=== PATIENT | male | born 1955 | race African-American/Black ===

== ENCOUNTER 2019-11-16 19:27 | Inpatient (IN) | payer OTHER ==
[2019-11-16 22:05] VITALS: BMI 27.3
--- NOTE | 2019-11-16 22:33 | HP ---
CIWA Score Nausea/Vomitin-Mild Nausea/No Vomiting Muscle Tremors: 3 Anxiety: 3 Agitation: 2 Paroxysmal Sweats: 2 Orientation: 0-Oriented Tacttile Disturbances: 0-None Auditory Disturbances: 0-None Visual Disturbances: 0-None Headache: 4-Moderately Severe CIWA-Ar Total Score: 15 - Admission Criteria OASAS Guidelines: Admission for Medically Managed Detox: Requires at least one of the followin. CIWA greater than 12 2. Seizures within the past 24 hours 3. Delirium tremens within the past 24 hours 4. Hallucinations within the past 24 hours 5. Acute intervention needed for co occurring medical disorder 6. Acute intervention needed for co occurring psychiatric disorder 7. Severe withdrawal that cannot be handled at a lower level of care (continued vomiting, continued diarrhea, abnormal vital signs) requiring intravenous medication and/or fluids 8. Admission ROS [facility] Chief Complaint: Alcohol withdrawal symptoms Allergies/Adverse Reactions: Allergies Allergy/AdvReac Type Severity Reaction Status Date / Time mushroom Allergy Severe Verified 11/16/19 21:55 Fish Containing Products Allergy Mild Verified 11/16/19 21:55 scanlon Allergy Mild Uncoded 11/16/19 21:55 veal Allergy Uncoded 11/16/19 21:55 History of Present Illness: 64 years old male with a history of 40 years of alcohol dependence is seeking admission to detox. Patient states that he was admitted to [facility] 25 years ago and reports 3 years of sobriety. He has medical history of low back pain, hypertension, hyperlipidemia and diabetes type 2. He also has prosthetic left eye and psychiatric history of depression. He denies suicide attempt and suicidal ideation at this time. - Ebola screening Have you traveled outside of the country in the last 21 days: No (N) Have you had contact with anyone from an Ebola affected area: No Do you have a fever: No - Review of Systems Constitutional: Chills, Malaise, Night Sweats, Changes in sleep EENT: reports: No Symptoms Reported, Other (prosthetic left eye) Cardiac: reports: No Symptoms Reported GI: reports: Nausea, Poor Appetite, Poor Fluid Intake : reports: No Symptoms Reported Musculoskeletal: reports: Back Pain, Muscle Pain Integumentary: reports: Dryness, Flushing Neuro: reports: Tremors Endocrine: reports: No Symptoms Reported Hematology: reports: No Symptoms Reported Psychiatric: reports: Mood/Affect Appropiate, Orientated x3, Anxious, Depressed Other Systems: Reviewed and Negative Patient History - Patient Medical History Hx Anemia: No Hx Asthma: No Hx Chronic Obstructive Pulmonary Disease (COPD): No Hx Cardiac Disorders: No Hx Congestive Heart Failure: No Hx Hypertension: Yes Hx Hypercholesterolemia: No HX Cerebrovascular Accident: No Hx Seizures: No Hx Dementia: No Hx Diabetes: Yes (Metformin, [place]) Hx Gastrointestinal Disorders: No Hx Liver Disease: No Hx Genitourinary Disorders: No Hx Sexually Transmitted Disorders: No Hx Renal Disease (ESRD): No Hx Thyroid Disease: No Hx Human Immunodeficiency Virus (HIV): No (Negative 2017) Hx Hepatitis C: No Hx Depression: Yes Hx Suicide Attempt: No (Denies suicidal ideation at this time) Hx Bipolar Disorder: Yes Hx Schizophrenia: No - Patient Surgical History Past Surgical History: Yes Hx Neurologic Surgery: No Hx Cataract Extraction: No Hx Cardiac Surgery: No Hx Lung Surgery: No Hx Abdominal Surgery: No Hx Appendectomy: No Hx Cholecystectomy: No Hx Genitourinary Surgery: No Hx Section: No Hx Orthopedic Surgery: No Other Surgical History: LEFT EYE SURGERY 1995 Anesthesia Reaction: No - PPD History Previous Implant?: Yes (PPD POSITIVE. INH for 6 MONTHS) Documented Results: Positive w/o proof Implanted On Prior [facility] Admission?: No PPD to be Administered?: No - Reproductive History Patient is a Female of Child Bearing Age (11 -55 yrs old): No (male) - Smoking Cessation Smoking history: Current every day smoker Have you smoked in the past 12 months: Yes Aproximately how many cigarettes per day: 20 Hx Chewing Tobacco Use: No Initiated information on smoking cessation: Yes 'Breaking Loose' booklet given: 11/16/19 - Substance & Tx. History Hx Alcohol Use: Yes Hx Substance Use: No Substance Use Type: Alcohol Hx Substance Use Treatment: No - Substances abused Alcohol Substance route: Oral Frequency: Daily Amount used: 2-3 pints of vodka Age of first use: 24 Date of last use: 11/16/19 Admission Physical Exam BHS - Vital Signs Vital Signs: Vital Signs - 24 hr 11/16/19 21:54 Temperature 98.2 F Pulse Rate 99 H Respiratory 20 Rate Blood Pressure 155/74 - Physical General Appearance: Yes: Mild Distress HEENTM: Yes: Within Normal Limits Respiratory: Yes: Lungs Clear, Normal Breath Sounds, No Respiratory Distress Neck: Yes: Within Normal Limits, Supple Breast: Yes: Breast Exam Deferred Cardiology: Yes: Tachycardia Abdominal: Yes: Normal Bowel Sounds, Soft Genitourinary: Yes: Within Normal Limits Back: Yes: Normal Inspection Musculoskeletal: Yes: Within Normal Limits Extremities: Yes: Normal Inspection Neurological: Yes: Within Normal Limits, Alert, Normal Mood/Affect Integumentary: Yes: Warm Lymphatic: Yes: Within Normal Limits - Diagnostic (1) Alcohol dependence with withdrawal, uncomplicated Current Visit: Yes Status: Acute (2) Nicotine dependence Current Visit: Yes Status: Chronic Qualifiers: Nicotine product type: cigarettes Substance use status: uncomplicated Qualified Code(s): F17.210 - Nicotine dependence, cigarettes, uncomplicated (3) DM type 2 (diabetes mellitus, type 2) Current Visit: Yes Status: Chronic (4) Hypertension Current Visit: Yes Status: Chronic Qualifiers: Hypertension type: essential hypertension Qualified Code(s): I10 - Essential (primary) hypertension (5) Hyperlipidemia Current Visit: Yes Status: Chronic (6) Depression Current Visit: Yes Status: Chronic Qualifiers: Depression Type: unspecified Qualified Code(s): F32.9 - Major depressive disorder, single episode, unspecified Cleared for Admission S - Detox or Rehab [facility] Level of Care: Medically Managed Detox Regimen/Protocol: Librium Claeared for Rehab Admission: Yes Breathalyzer - Breathalyzer Breathalyzer: 0.135 Urine Drug Screen - Test Device Lot number: [id number] Expiration date: 06/14/21 - Control Is test valid?: Yes - Results Drug screen NEGATIVE: Yes Inpatient Rehab Admission - Rehab Decision to Admit Inpatient rehab admission?: No
[2019-11-16] MEDS ORDERED: ACETAMINOPHEN 325 MG TABLET (FP) PO PRN ×2 (22:56)
[2019-11-16] MEDS ORDERED: MAG HYDROX/AL HYDROX/SIMETH 30 ML UNIT-DOSE CUP PO PRN (22:56)
[2019-11-16] MEDS ORDERED: MELATONIN 5 MG TABLETS PO PRN (22:56)
[2019-11-16] MEDS ORDERED: MAGNESIUM CITRATE 300 ML BOTTLE PO PRN (22:56)
[2019-11-16] MEDS ORDERED: BISMUTH SUBSALICYLATE 524 MG/30 ML UD PO PRN (22:56)
[2019-11-16] MEDS ORDERED: NICOTINE POLACRILEX 2 MG GUM BUC PRN (22:56)
[2019-11-16] MEDS ORDERED: hydrOXYzine PAMOATE 25 MG CAPSULE (FP) PO PRN (22:56)
[2019-11-16] MEDS ORDERED: chlordiazePOXIDE HCL 25 MG CAPSULE PO PRN (22:56)
[2019-11-16] MEDS ORDERED: MENTHOL/PHENOL 1 EACH UD MM PRN (22:56)
[2019-11-17] MEDS: chlordiazePOXIDE HCL 25 MG CAPSULE PO SCH ×5 (00:35→22:01)
[2019-11-17] MEDS: metFORMIN HCL 500 MG TABLET (FP) PO SCH ×2 (06:40→16:49)
[2019-11-17] MEDS: IBUPROFEN 400 MG TABLET (FP) PO PRN ×2 (06:42→22:01)
[2019-11-17] MEDS: MAGNESIUM HYDROX 2400MG/30ML ORAL SUSPENSION 30 ML CUP PO PRN ×2 (09:17→22:01)
[2019-11-17 10:17] LABS: HEMATOCRIT 35.2 % (35.4-49); HEMOGLOBIN 11.8 GM/dL (11.7-16.9); MCH 31.4 pg (25.7-33.7); MCHC 33.7 g/dl (32.0-35.9); MEAN CELL VOLUME 93.3 fl (80-96); MEAN PLT VOLUME 8.6 fl (7.5-11.1); PLATELET COUNT 236 K/MM3 (134-434); RBC 3.77 M/mm3 (4.00-5.60); RDW 17.2 % (11.9-15.9); WHITE BLOOD COUNT 5.8 K/mm3 (4.0-10.0)
[2019-11-17 10:19] LABS: ALBUMIN 3.9 g/dl (3.4-5.0); BILIRUBIN,TOTAL 0.7 mg/dL (0.2-1); CALCIUM 8.7 mg/dL (8.5-10.1); CREATININE 1.2 mg/dL (0.55-1.3); POTASSIUM 3.7 mmol/L (3.5-5.1); TOT PROT 7.9 g/dl (6.4-8.2)
[2019-11-17] MEDS: PRENATAL VITAMINS W/ FOLIC ACID TABLET (FP) PO SCH (10:34)
[2019-11-17] MEDS: ASPIRIN 81 MG CHEWABLE TABLETS PO SCH (10:34)
[2019-11-17] MEDS: NICOTINE 14 MG/24 HOURS TOPICAL PATCH TD SCH (10:36)
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
[2019-11-17] MEDS: LOSARTAN 50MG/HCTZ 12.5MG 1 TAB (FP) PO SCH (12:00)
[2019-11-17] MEDS: SERTRALINE HCL 50 MG TABLET (FP) PO SCH (12:30)
--- NOTE | 2019-11-17 13:12 | PN ---
[facility]HS CIWA - CIWA Score Nausea/Vomitin Muscle Tremors: 2 Anxiety: 1-Mildly Anxious Agitation: 1-Slight > Activity Paroxysmal Sweats: 2 Orientation: 0-Oriented Tacttile Disturbances: 1-Very Mild Itch/Numbness Auditory Disturbances: 0-None Visual Disturbances: 0-None Headache: 0-None Present CIWA-Ar Total Score: 9 BHS Progress Note (SOAP) Subjective: interrupted sleep, sweats, shakes , lbp Objective: 11/17/19 13:09 Vital Signs Temp 97.2 F L 11/17/19 09:24 Pulse 85 11/17/19 09:24 Resp 18 11/17/19 09:24 BP 143/80 11/17/19 09:24 Pulse Ox Intake & Output 11/16/19 11/17/19 11/17/19 23:59 11:59 23:59 Weight 175 lb Other: Voiding Method Toilet Height 5 ft 7 in Body Mass Index (BMI) 27.3 Laboratory Tests 11/16/19 11/17/19 11/17/19 23:31 06:15 07:40 WBC 5.8 RBC 3.77 L Hgb 11.8 Hct 35.2 L MCV 93.3 MCH 31.4 MCHC 33.7 RDW 17.2 H Plt Count 236 MPV 8.6 Sodium Potassium Chloride Carbon Dioxide Anion Gap BUN Creatinine Est GFR (CKD-EPI)AfAm Est GFR (CKD-EPI)NonAf POC Glucometer 90 160 Random Glucose Calcium Total Bilirubin AST ALT Alkaline Phosphatase Total Protein Albumin RPR Titer 11/17/19 11/17/19 07:40 07:40 WBC RBC Hgb Hct MCV MCH MCHC RDW Plt Count MPV Sodium 136 Potassium 3.7 Chloride 101 Carbon Dioxide 28 Anion Gap 8 BUN 19.0 H Creatinine 1.2 Est GFR (CKD-EPI)AfAm 74.66 Est GFR (CKD-EPI)NonAf 64.42 POC Glucometer Random Glucose 131 H Calcium 8.7 Total Bilirubin 0.7 AST 68 H ALT 67 H Alkaline Phosphatase 77 Total Protein 7.9 Albumin 3.9 RPR Titer Nonreactive pt aox3 in nad ambulating well Assessment: 11/17/19 13:10 withdrawal sx's Plan: cont. detox increase fluidss nicotine gum
--- NOTE | 2019-11-17 13:26 | EKG ---
Test Reason : Blood Pressure : / mmHG Vent. Rate : 096 BPM Atrial Rate : 096 BPM P-R Int : 144 ms QRS Dur : 096 ms QT Int : 358 ms P-R-T Axes : 060 021 045 degrees QTc Int : 452 ms NORMAL SINUS RHYTHM NORMAL ECG NO PREVIOUS ECGS AVAILABLE Confirmed by CLEMENTE TRUJILLO, SHY ([id number]) on 11/17/2019 1:26:23 PM Referred By: Carmelo Walker Confirmed By:SHY CORNEJO MD
[2019-11-17] MEDS: QUEtiapine FUMARATE 200 MG TABLET PO SCH (22:01)
[2019-11-17] MEDS: THIAMINE HCL 100 MG TABLET (FP) PO SCH (22:01)
[2019-11-18] MEDS: metFORMIN HCL 500 MG TABLET (FP) PO SCH ×2 (06:49→17:27)
[2019-11-18] MEDS: chlordiazePOXIDE HCL 25 MG CAPSULE PO SCH ×4 (06:50→22:03)
[2019-11-18] MEDS: SERTRALINE HCL 50 MG TABLET (FP) PO SCH (10:20)
[2019-11-18] MEDS: PRENATAL VITAMINS W/ FOLIC ACID TABLET (FP) PO SCH (10:20)
[2019-11-18] MEDS: ASPIRIN 81 MG CHEWABLE TABLETS PO SCH (10:20)
[2019-11-18] MEDS: LOSARTAN 50MG/HCTZ 12.5MG 1 TAB (FP) PO SCH (10:21)
[2019-11-18] MEDS: NICOTINE 14 MG/24 HOURS TOPICAL PATCH TD SCH (10:21)
[2019-11-18] MEDS: METHOCARBAMOL 500 MG TABLET PO PRN ×2 (10:24→22:05)
--- NOTE | 2019-11-18 10:46 | PN ---
S CIWA - CIWA Score Nausea/Vomitin-Mild Nausea/No Vomiting Muscle Tremors: 2 Anxiety: 1-Mildly Anxious Agitation: 1-Slight > Activity Paroxysmal Sweats: No Perspiration Orientation: 0-Oriented Tacttile Disturbances: 0-None Auditory Disturbances: 0-None Visual Disturbances: 0-None Headache: 1-Very Mild CIWA-Ar Total Score: 6 BHS Progress Note (SOAP) Subjective: pt requesting a cane. Says he has heel spurs and needs help with a cane. Uses one at home but left it there. Says he is doing well with detox. O: Vital Signs - 24 hr 11/17/19 11/17/19 11/17/19 13:14 17:21 21:43 Temperature 98.6 F 98.4 F 97.8 F Pulse Rate 72 106 H 83 Respiratory 20 18 18 Rate Blood Pressure 157/91 142/94 159/85 11/18/19 11/18/19 11/18/19 00:30 03:37 06:54 Temperature 97.3 F L Pulse Rate 72 Respiratory 18 18 18 Rate Blood Pressure 132/60 11/18/19 09:53 Temperature 98.1 F Pulse Rate 89 Respiratory 18 Rate Blood Pressure 130/74 Laboratory Tests 11/16/19 11/17/19 11/17/19 23:31 06:15 07:40 WBC 5.8 RBC 3.77 L Hgb 11.8 Hct 35.2 L MCV 93.3 MCH 31.4 MCHC 33.7 RDW 17.2 H Plt Count 236 MPV 8.6 Sodium Potassium Chloride Carbon Dioxide Anion Gap BUN Creatinine Est GFR (CKD-EPI)AfAm Est GFR (CKD-EPI)NonAf POC Glucometer 90 160 Random Glucose Calcium Total Bilirubin AST ALT Alkaline Phosphatase Total Protein Albumin RPR Titer 11/17/19 11/17/19 11/17/19 07:40 07:40 16:31 WBC RBC Hgb Hct MCV MCH MCHC RDW Plt Count MPV Sodium 136 Potassium 3.7 Chloride 101 Carbon Dioxide 28 Anion Gap 8 BUN 19.0 H Creatinine 1.2 Est GFR (CKD-EPI)AfAm 74.66 Est GFR (CKD-EPI)NonAf 64.42 POC Glucometer 181 Random Glucose 131 H Calcium 8.7 Total Bilirubin 0.7 AST 68 H ALT 67 H Alkaline Phosphatase 77 Total Protein 7.9 Albumin 3.9 RPR Titer Nonreactive 11/18/19 06:48 WBC RBC Hgb Hct MCV MCH MCHC RDW Plt Count MPV Sodium Potassium Chloride Carbon Dioxide Anion Gap BUN Creatinine Est GFR (CKD-EPI)AfAm Est GFR (CKD-EPI)NonAf POC Glucometer 256 Random Glucose Calcium Total Bilirubin AST ALT Alkaline Phosphatase Total Protein Albumin RPR Titer a/p: AUD- continue alcohol detox mildly increased liver enzymes
[2019-11-18] MEDS: IBUPROFEN 400 MG TABLET (FP) PO PRN ×2 (12:23→22:05)
[2019-11-18] MEDS: THIAMINE HCL 100 MG TABLET (FP) PO SCH (22:03)
[2019-11-18] MEDS: QUEtiapine FUMARATE 200 MG TABLET PO SCH (22:03)
[2019-11-19] MEDS ORDERED: chlordiazePOXIDE HCL 10 MG CAPSULE PO PRN
[2019-11-19] MEDS: METHOCARBAMOL 500 MG TABLET PO PRN ×2 (06:33→22:31)
[2019-11-19] MEDS: metFORMIN HCL 500 MG TABLET (FP) PO SCH ×2 (06:33→17:29)
[2019-11-19] MEDS: chlordiazePOXIDE HCL 10 MG CAPSULE PO SCH ×4 (06:33→22:33)
[2019-11-19] MEDS: NICOTINE 14 MG/24 HOURS TOPICAL PATCH TD SCH (10:57)
[2019-11-19] MEDS: SERTRALINE HCL 50 MG TABLET (FP) PO SCH (10:57)
[2019-11-19] MEDS: LOSARTAN 50MG/HCTZ 12.5MG 1 TAB (FP) PO SCH (10:57)
[2019-11-19] MEDS: PRENATAL VITAMINS W/ FOLIC ACID TABLET (FP) PO SCH (10:57)
[2019-11-19] MEDS: ASPIRIN 81 MG CHEWABLE TABLETS PO SCH (10:57)
--- NOTE | 2019-11-19 12:42 | PN ---
S CIWA - CIWA Score Nausea/Vomitin-No Nausea/No Vomiting Muscle Tremors: 2 Anxiety: 2 Agitation: 1-Slight > Activity Paroxysmal Sweats: 2 Orientation: 0-Oriented Tacttile Disturbances: 0-None Auditory Disturbances: 0-None Visual Disturbances: 0-None Headache: 0-None Present CIWA-Ar Total Score: 7 BHS Progress Note (SOAP) Subjective: Tremor, chills, sweating, interrupted sleep Objective: 11/19/19 12:39 Last Vital Signs Temp Pulse Resp BP Pulse Ox 98.1 F 83 18 161/87 11/19/19 08:52 11/19/19 08:52 11/19/19 08:52 11/19/19 08:52 Elevated b/p noted; has htn: on medication Laboratory Tests 11/16/19 11/17/19 11/17/19 23:31 06:15 07:40 WBC 5.8 RBC 3.77 L Hgb 11.8 Hct 35.2 L MCV 93.3 MCH 31.4 MCHC 33.7 RDW 17.2 H Plt Count 236 MPV 8.6 Sodium Potassium Chloride Carbon Dioxide Anion Gap BUN Creatinine Est GFR (CKD-EPI)AfAm Est GFR (CKD-EPI)NonAf POC Glucometer 90 160 Random Glucose Calcium Total Bilirubin AST ALT Alkaline Phosphatase Total Protein Albumin RPR Titer 11/17/19 11/17/19 11/17/19 07:40 07:40 16:31 WBC RBC Hgb Hct MCV MCH MCHC RDW Plt Count MPV Sodium 136 Potassium 3.7 Chloride 101 Carbon Dioxide 28 Anion Gap 8 BUN 19.0 H Creatinine 1.2 Est GFR (CKD-EPI)AfAm 74.66 Est GFR (CKD-EPI)NonAf 64.42 POC Glucometer 181 Random Glucose 131 H Calcium 8.7 Total Bilirubin 0.7 AST 68 H ALT 67 H Alkaline Phosphatase 77 Total Protein 7.9 Albumin 3.9 RPR Titer Nonreactive 11/18/19 11/18/19 11/19/19 06:48 16:23 06:31 WBC RBC Hgb Hct MCV MCH MCHC RDW Plt Count MPV Sodium Potassium Chloride Carbon Dioxide Anion Gap BUN Creatinine Est GFR (CKD-EPI)AfAm Est GFR (CKD-EPI)NonAf POC Glucometer 256 198 267 Random Glucose Calcium Total Bilirubin AST ALT Alkaline Phosphatase Total Protein Albumin RPR Titer Labs reviewed: hyperglycemia due to DM (on medication) Assessment: 11/19/19 12:40 Withdrawal sxs Plan: Continue detox Encouraged PO water intake HTN: on medication, encouraged adherence DMT2: on medication, encouraged adherence to medication
[2019-11-19] MEDS: QUEtiapine FUMARATE 200 MG TABLET PO SCH (22:31)
[2019-11-19] MEDS: IBUPROFEN 400 MG TABLET (FP) PO PRN (22:31)
[2019-11-19] MEDS: THIAMINE HCL 100 MG TABLET (FP) PO SCH (22:31)
[2019-11-20] MEDS: metFORMIN HCL 500 MG TABLET (FP) PO SCH ×2 (06:33→16:25)
[2019-11-20] MEDS: chlordiazePOXIDE HCL 10 MG CAPSULE PO SCH ×2 (06:34→16:25)
--- NOTE | 2019-11-20 10:13 | PN ---
S CIWA - CIWA Score Nausea/Vomitin-Mild Nausea/No Vomiting Muscle Tremors: 1-None Visible, but Raven Anxiety: 1-Mildly Anxious Agitation: 1-Slight > Activity Paroxysmal Sweats: No Perspiration Orientation: 0-Oriented Tacttile Disturbances: 1-Very Mild Itch/Numbness Auditory Disturbances: 0-None Visual Disturbances: 0-None Headache: 1-Very Mild CIWA-Ar Total Score: 6 BHS Progress Note (SOAP) Subjective: alert,irritable,anxious,interrupted sleep, Objective: 11/20/19 10:11 Vital Signs Temperature 98.1 F 11/20/19 09:15 Pulse Rate 78 11/20/19 09:15 Respiratory Rate 18 11/20/19 09:15 Blood Pressure 151/88 11/20/19 09:15 O2 Sat by Pulse Oximetry (%) 11/20/19 10:12 [id number] Assessment: 11/20/19 10:12 withdrawal symptom Plan: continue detox,discharge in am
[2019-11-20] MEDS: PRENATAL VITAMINS W/ FOLIC ACID TABLET (FP) PO SCH (11:25)
[2019-11-20] MEDS: ASPIRIN 81 MG CHEWABLE TABLETS PO SCH (11:25)
[2019-11-20] MEDS: NICOTINE 14 MG/24 HOURS TOPICAL PATCH TD SCH (11:25)
[2019-11-20] MEDS: LOSARTAN 50MG/HCTZ 12.5MG 1 TAB (FP) PO SCH (11:25)
[2019-11-20] MEDS: SERTRALINE HCL 50 MG TABLET (FP) PO SCH (11:25)
--- NOTE | 2019-11-20 17:05 | HOSP ---
Subjective - Review of Symptoms Subjective: called by nurse regarding the patient's BGM. Per nurse, BGM was 300 at this time and has been consistently in the 200-300's during his stay. The patient has been on metformin and januvia; his home medications. The nurse also informed this selling underwriter that the patient has been noncompliant with his diet, adding sugar to his coffee. On chart review, the patient's BGM has been consistently in the high 100's - 300's. In addition to this, patient is on a regular diet. Will change regular diet to diabetic diet. Will also d/c the patient's oral hypoglycemics and place him on ISS until his sugars are better controlled. Physical Examination Vital Signs: Vital Signs Temperature 98.1 F 11/20/19 09:15 Pulse Rate 78 11/20/19 09:15 Respiratory Rate 18 11/20/19 09:15 Blood Pressure 151/88 11/20/19 09:15 O2 Sat by Pulse Oximetry (%) Labs: CBC, BMP 11/17/19 07:40 11/17/19 07:40 Visit type - Emergency Visit Emergency Visit: No - New Patient This patient is new to me today: Yes Date on this admission: 11/20/19 - Critical Care Critical Care patient: No
[2019-11-20] MEDS: IBUPROFEN 400 MG TABLET (FP) PO PRN (22:00)
[2019-11-20] MEDS: QUEtiapine FUMARATE 200 MG TABLET PO SCH (22:00)
[2019-11-20] MEDS: THIAMINE HCL 100 MG TABLET (FP) PO SCH (22:02)
[2019-11-21] MEDS ORDERED: chlordiazePOXIDE HCL 10 MG CAPSULE PO ONE (05:00)
[2019-11-21] MEDS: chlordiazePOXIDE HCL 10 MG CAPSULE PO SCH (06:40)
[2019-11-21] MEDS ORDERED: INSULIN SLIDING SCALE (NOVOLOG) 1 VIAL SQ SCH (07:00)
[2019-11-21 09:25] VITALS: BP 144/77; PULSE 77; TEMP 97.3
--- NOTE | 2019-11-21 09:37 | DS ---
[facility] Detox Discharge Summary Admission Date: 11/16/19 Discharge Date: 11/21/19 - History Present History: Alcohol Dependence - Physical Exam Results Vital Signs: Vital Signs Temperature 97.3 F L 11/21/19 09:24 Pulse Rate 77 11/21/19 09:24 Respiratory Rate 18 11/21/19 09:24 Blood Pressure 144/77 11/21/19 09:24 O2 Sat by Pulse Oximetry (%) Pertinent Admission Physical Exam Findings: Vital Signs Temperature 97.3 F L 11/21/19 09:24 Pulse Rate 77 11/21/19 09:24 Respiratory Rate 18 11/21/19 09:24 Blood Pressure 144/77 11/21/19 09:24 O2 Sat by Pulse Oximetry (%) Laboratory Tests 11/16/19 11/17/19 11/17/19 23:31 06:15 07:40 WBC 5.8 RBC 3.77 L Hgb 11.8 Hct 35.2 L MCV 93.3 MCH 31.4 MCHC 33.7 RDW 17.2 H Plt Count 236 MPV 8.6 Sodium Potassium Chloride Carbon Dioxide Anion Gap BUN Creatinine Est GFR (CKD-EPI)AfAm Est GFR (CKD-EPI)NonAf POC Glucometer 90 160 Random Glucose Calcium Total Bilirubin AST ALT Alkaline Phosphatase Total Protein Albumin RPR Titer 11/17/19 11/17/19 11/17/19 07:40 07:40 16:31 WBC RBC Hgb Hct MCV MCH MCHC RDW Plt Count MPV Sodium 136 Potassium 3.7 Chloride 101 Carbon Dioxide 28 Anion Gap 8 BUN 19.0 H Creatinine 1.2 Est GFR (CKD-EPI)AfAm 74.66 Est GFR (CKD-EPI)NonAf 64.42 POC Glucometer 181 Random Glucose 131 H Calcium 8.7 Total Bilirubin 0.7 AST 68 H ALT 67 H Alkaline Phosphatase 77 Total Protein 7.9 Albumin 3.9 RPR Titer Nonreactive 11/18/19 11/18/19 11/19/19 06:48 16:23 06:31 WBC RBC Hgb Hct MCV MCH MCHC RDW Plt Count MPV Sodium Potassium Chloride Carbon Dioxide Anion Gap BUN Creatinine Est GFR (CKD-EPI)AfAm Est GFR (CKD-EPI)NonAf POC Glucometer 256 198 267 Random Glucose Calcium Total Bilirubin AST ALT Alkaline Phosphatase Total Protein Albumin RPR Titer 11/19/19 11/20/19 11/20/19 16:28 06:32 16:19 WBC RBC Hgb Hct MCV MCH MCHC RDW Plt Count MPV Sodium Potassium Chloride Carbon Dioxide Anion Gap BUN Creatinine Est GFR (CKD-EPI)AfAm Est GFR (CKD-EPI)NonAf POC Glucometer 308 223 385 Random Glucose Calcium Total Bilirubin AST ALT Alkaline Phosphatase Total Protein Albumin RPR Titer 11/21/19 06:28 WBC RBC Hgb Hct MCV MCH MCHC RDW Plt Count MPV Sodium Potassium Chloride Carbon Dioxide Anion Gap BUN Creatinine Est GFR (CKD-EPI)AfAm Est GFR (CKD-EPI)NonAf POC Glucometer 342 Random Glucose Calcium Total Bilirubin AST ALT Alkaline Phosphatase Total Protein Albumin RPR Titer aaox3 ambulating no acute distress - Treatment Hospital Course: Detox Protocol Followed, Detoxed Safely, Responded well, Discharged Condition Good, Rehab Referral Accepted Patient has Accepted a Rehab Referral to: referred to [facility] inpatient rehab - Medication Discharge Medications: Ambulatory Orders Aspirin 81 mg PO DAILY 11/16/19 Ibuprofen [Motrin -] 400 mg PO BID PRN 11/16/19 Losartan/Hydrochlorothiazide [Losartan-Hctz 50-12.5 mg Tab] 1 each PO DAILY 01/04 Metformin HCl [Glucophage] 1,000 mg PO BID 11/16/19 Quetiapine Fumarate [Seroquel -] 300 mg PO HS 11/16/19 Sertraline HCl [Zoloft] 100 mg PO DAILY 11/16/19 Sitagliptin Phosphate [Januvia] 100 mg PO DAILY 11/16/19 - Diagnosis (1) Alcohol dependence with withdrawal, uncomplicated Current Visit: Yes Status: Chronic (2) DM type 2 (diabetes mellitus, type 2) Current Visit: Yes Status: Chronic (3) Depression Current Visit: Yes Status: Chronic Qualifiers: Depression Type: unspecified Qualified Code(s): F32.9 - Major depressive disorder, single episode, unspecified (4) Hyperlipidemia Current Visit: Yes Status: Chronic (5) Hypertension Current Visit: Yes Status: Chronic Qualifiers: Hypertension type: essential hypertension Qualified Code(s): I10 - Essential (primary) hypertension (6) MDD (major depressive disorder) Current Visit: Yes Status: Chronic (7) Nicotine dependence Current Visit: Yes Status: Chronic Qualifiers: Nicotine product type: cigarettes Substance use status: uncomplicated Qualified Code(s): F17.210 - Nicotine dependence, cigarettes, uncomplicated - AMA Did Patient Leave Against Medical Advice: No
== END 2019-11-21 08:50 | disposition home or self-care (01) | DRG 775 ==
LOC: YASAS 19:27 → Y6N 23:23
PROVIDERS: ADMIT Allergy & Immunology; ATTEND Allergy & Immunology
PROC: HZ2ZZZZ Detoxification Services for Substance Abuse Treatment (ICD-10-PCS; principal; 2019-11-16)
DX: F10.230 Alcohol dependence with withdrawal, uncomplicated (principal); F17.210 Nicotine dependence, cigarettes, uncomplicated; F32.9 Major depressive disorder, single episode, unspecified; I10 Essential (primary) hypertension; E11.9 Type 2 diabetes mellitus without complications; E78.5 Hyperlipidemia, unspecified; R00.0 Tachycardia, unspecified; Z79.4 Long term (current) use of insulin; Z97.0 Presence of artificial eye; Z91.410 Personal history of adult physical and sexual abuse; Z91.013 Allergy to seafood; Z91.018 Allergy to other foods
CPT/HCPCS: 36415; 71046-TC-FY; 80053; 82962; 85027; 86593; 93005; 93010